=== PATIENT | male | born 1960 | race Caucasian/White ===

== ENCOUNTER 2021-08-08 14:24 | Emergency (ER) | payer MEDICARE, MEDICAID ==
[~2021-08-08] VITALS: Ht 160 cm; Wt 56.5 kg
[2021-08-08 14:41] VITALS: BP 153/83
[2021-08-08 15:11] LABS: BASOPHILS # (AUTO) 0.1 X10'3 (0-0.2); EOSINOPHILS # (AUTO) 0.2 X10'3 (0-0.9); EOSINOPHILS % (AUTO) 3.8 % (0-6); HEMATOCRIT 47.6 % (42.0-52.0); HEMOGLOBIN 16.7 g/dl (14.0-17.9); LYMPHOCYTES # (AUTO) 2.8 X10'3 (1.1-4.8); LYMPHOCYTES % (AUTO) 44.2 % (21-51); MEAN CORPUSCULAR HEMOGLOBIN 35.1 PG (27.0-31.0); MEAN CORPUSCULAR HGB CONC 35.2 g/dL (33.0-36.5); MEAN CORPUSCULAR VOLUME 99.9 FL (78-98); MEAN PLATELET VOLUME 7.3 FL (7.4-10.4); MONOCYTES # (AUTO) 0.6 X10'3 (0-0.9); NEUTROPHILS # (AUTO) 2.6 X10'3 (1.8-7.7); PLATELET COUNT 166 X10'3 (140-440); RED BLOOD COUNT 4.76 X10'6 (4.70-6.10); RED CELL DISTRIBUTION WIDTH 12.9 % (11.5-14.5); WHITE BLOOD COUNT 6.4 X10'3 (4.5-11.0)
[2021-08-08 15:13] LABS: UA COLLECTION TYPE NON-SPECIFIED
[2021-08-08 15:14] LABS: CLARITY,URINE CLOUDY (Clear); COLOR,URINE YELLOW (Yellow); GLUCOSE, URINE NEGATIVE (Neg); KETONES,URINE NEGATIVE (Neg); OCCULT BLOOD,URINE NEGATIVE (Neg); PH,URINE 7.5 (4.8-8.0); PROTEIN,URINE NEGATIVE (Neg)
[2021-08-08 15:16] LABS: BACTERIA,URINE FEW /HPF (Neg); LEUKOCYTE ESTERASE ,URINE NEGATIVE (Neg); NITRITES, URINE NEGATIVE (Neg); RBC,URINE 0-2 /HPF (0-2); SQUAMOUS EPITHELIAL CELL,UR FEW /LPF (FEW); UROBILINOGEN,URINE 0.2 E.U/dL (0.2-1.0)
[2021-08-08 15:17] LABS: AMORPHOUS PHOSPHATES 4+
[2021-08-08 15:18] LABS: MUCUS STRANDS FEW /LPF (Neg)
[2021-08-08 15:23] LABS: ALANINE AMINOTRANSFERASE 82 U/L (12-78); ALBUMIN 3.7 G/DL (3.4-5.0); ALBUMIN/GLOBULIN RATIO 0.8 (1.1-1.5); ALKALINE PHOSPHATASE 110 IU/L (46-116); ANION GAP 10 (8-16); ASPARTATE AMINO TRANSFERASE 59 U/L (10-37); BILIRUBIN,TOTAL 0.6 MG/DL (0.1-1.0); BLOOD UREA NITROGEN 11 MG/DL (7-18); BUN/CREATININE RATIO 10.8 (5.4-32.0); CALCIUM 9.2 MG/DL (8.5-10.1); CHLORIDE 103 MMOL/L (99-107); CREATININE 1.02 MG/DL (0.60-1.10); GLUCOSE 106 MG/DL (70-104); POTASSIUM 3.7 MMOL/L (3.5-5.1); SODIUM 142 MMOL/L (135-145); TOTAL CARBON DIOXIDE 29.4 MMOL/L (24-32); TOTAL PROTEIN 8.6 G/DL (6.4-8.2); eGFR 74 ML/MIN
[2021-08-08] MEDS ORDERED: CIPR-202 PO (15:53)
--- NOTE | 2021-08-08 15:57 | NUR ---
PT NOT COVID VACCINATION.
== END 2021-08-08 16:06 | disposition home or self-care (01) ==
LOC: ER 14:25
DX: N39.0 Urinary tract infection, site not specified (principal); N23 Unspecified renal colic; R30.0 Dysuria; M54.5 Low back pain; Z86.19 Personal history of other infectious and parasitic diseases; Z98.890 Other specified postprocedural states; Z79.2 Long term (current) use of antibiotics
CPT/HCPCS: 36415; 80053; 81001; 85025; 87088; 99283

== ENCOUNTER 2022-11-22 16:08 | Emergency (ER) | payer MEDICARE, MEDICAID ==
[~2022-11-22] VITALS: Ht 149.9 cm; Wt 56.8 kg
[2022-11-22 16:28] VITALS: BP 149/80
[2022-11-22] MEDS ORDERED: ALBU8HFA PO (16:59)
[2022-11-22] MEDS ORDERED: GUAI400T92 PO (16:59)
[2022-11-22] MEDS ORDERED: AZIT500T2 PO (16:59)
[2022-11-22] MEDS ORDERED: azithromycin 250mg tablet PO ONE (17:00)
== END 2022-11-22 17:38 | disposition home or self-care (01) ==
LOC: ER 16:10
DX: J06.9 Acute upper respiratory infection, unspecified (principal); Z87.19 Personal history of other diseases of the digestive system
CPT/HCPCS: 71045; 99283

== ENCOUNTER 2023-12-28 08:08 | Emergency (ER) | payer MEDICARE, MEDICAID ==
[~2023-12-28] VITALS: Ht 149.9 cm; Wt 53.1 kg
[~2023-12-28 08:08] MED LIST: GUAI400T92 PO
[2023-12-28 08:22] VITALS: TEMP 97.8
[2023-12-28 09:03] VITALS: BP 126/76; PULSE 83; RESP 18; O2SAT 99
[2023-12-28] MEDS ORDERED: DIPH25CA83 PO (09:04)
[2023-12-28] MEDS: diphenhydrAMINE 25mg capsule PO ONE (09:08)
== END 2023-12-28 09:17 | disposition home or self-care (01) ==
LOC: ER 08:09
DX: J00 Acute nasopharyngitis [common cold] (principal); Z86.19 Personal history of other infectious and parasitic diseases
CPT/HCPCS: 99282; Q0163